=== PATIENT | male | born 1960 | race Hispanic/Latino ===

== ENCOUNTER → 2021-06-27 | Outpatient (CLI) | payer BC ==
[~2021-06-27] MED LIST: IOPAMIDOL 370 MG/ML 200 ML INFUS..BTL INJ ONE; METOPROLOL TARTRATE 25 MG TAB ONE; METOPROLOL TARTRATE INJ 1 MG/ML VIAL ONE; NITROGLYCERIN 0.4 MG SUBL ONE; SODIUM CHLORIDE 0.9% 100 ML ONE; SODIUM CHLORIDE 0.9% 250ML 250 ML ONE
[2021-06-27 08:12] LABS: CREATININE, SERUM 1.25 mg/dL (0.72-1.25)
== END ==
LOC: CT 07:37
PROVIDERS: ATTEND Internal Medicine Cardiovascular Disease
DX: R07.9 Chest pain, unspecified (principal)
CPT/HCPCS: 36415; 75574; 82565; 84520; J7050 ×2; Q9967

== ENCOUNTER 2022-02-10 00:31 | Inpatient (IN) | payer OTHER ==
[2022-02-10] VITALS (8 sets, daily range): BP systolic 105–191; BP diastolic 69–105
[~2022-02-10] VITALS: Ht 175.3 cm; Wt 126.6 kg
[2022-02-10] MEDS ORDERED: KETOROLAC TROME10 MG PO (04:13)
[2022-02-10] MEDS ORDERED: HYDRALAZINE HC100 MG PO (04:13)
[2022-02-10] MEDS ORDERED: CARVEDILOL25 MG PO (04:13)
[2022-02-10] MEDS ORDERED: JANTOVEN7.5 MG PO (04:13)
[2022-02-10] MEDS ORDERED: BUSPIRONE HCL10 MG PO (04:13)
[2022-02-10] MEDS ORDERED: LOSARTAN-HCTZ1 EAC1 PO (04:13)
[2022-02-10] MEDS ORDERED: ATORVASTATIN CA40 MG PO (04:13)
[2022-02-10] MEDS ORDERED: GABAPENTIN300 MG PO (04:13)
[2022-02-10] MEDS ORDERED: METOPROLOL TARTRATE INJ 1 MG/ML VIAL IV PRN (04:30)
[2022-02-10] MEDS ORDERED: ACETAMINOPHEN 325 MG TAB PO PRN (09:45)
[2022-02-10] MEDS ORDERED: ONDANSETRON HCL INJ 2MG/ML 2ML 2 MG/ML VIAL IV PRN (09:45)
[2022-02-10] MEDS ORDERED: DOCUSATE SODIUM 100 MG CAP PO PRN (09:45)
[2022-02-10 11:13] LABS: BASOPHILS % 0.2 % (0.0-1.0); HEMATOCRIT 41.7 % (38.2-49.6); HEMOGLOBIN 13.8 g/dL (14.0-18.0); LYMPHOCYTES # (AUTO) 0.7 (1.0-3.2); LYMPHOCYTES % 5.8 % (18.0-39.1); MEAN CORPUSCULAR HEMOGLOBIN 32.1 pg (28-32); MEAN CORPUSCULAR HGB CONC 33.1 g/dL (31-35); MONOCYTES # (AUTO) 1.2 (0.2-0.8); MONOCYTES % 10.9 % (4.4-11.3); NEUTROPHILS # (AUTO) 9.3 (2.1-6.9); NEUTROPHILS % 82.6 % (38.7-80.0); PLATELET COUNT 270 x10e3/uL (140-360); RED CELL DISTRIBUTION WIDTH 12.2 % (11.7-14.4)
[2022-02-10 11:24] LABS: INR 1.01; PROTHROMBIN TIME 14.2 seconds (11.9-14.5)
[2022-02-10 11:39] LABS: ANION GAP 17.4 mmol/L (8-16); CALCIUM 9.4 mg/dL (8.4-10.2); CREATININE, SERUM 0.82 mg/dL (0.72-1.25); POTASSIUM 3.4 mmol/L (3.5-5.1)
[2022-02-10] MEDS: CARVEDILOL 12.5 MG TAB PO SCH ×2 (11:47→17:32)
[2022-02-10] MEDS: HYDRALAZINE HCL 100 MG TABLET PO SCH ×2 (11:47→23:13)
[2022-02-10] MEDS: BUSPIRONE HCL 5 MG TAB PO SCH ×2 (11:47→17:32)
[2022-02-10 11:51] LABS: CHOL/HDL RATIO 3.3 (3.9-4.7)
[2022-02-10] MEDS: FUROSEMIDE INJ 10 MG/ML 2 ML VIAL IV SCH ×2 (13:11→17:32)
[2022-02-10] MEDS ORDERED: WATER STERILE 10 ML VIAL ONE (13:34)
[2022-02-10] MEDS ORDERED: ETOMIDATE 2 MG/ML 10 ML INJ IV ONE (13:34)
[2022-02-10] MEDS ORDERED: MIDAZOLAM HCL 2 MG/2 ML VIAL ONE (13:34)
[2022-02-10] MEDS ORDERED: VECURONIUM BROMIDE FOR INJ 20 MG VIAL ONE (13:34)
[2022-02-10] MEDS ORDERED: SUCCINYLCHOLINE CHLORIDE 20 MG/ML 10ML VIAL ONE (13:34)
[2022-02-10] MEDS ORDERED: HYDRALAZINE HCL 100 MG TABLET PO SCH (14:00)
[2022-02-10] MEDS: GABAPENTIN 300 MG CAP PO SCH ×2 (14:41→23:13)
[2022-02-10] MEDS: ALBUTEROL/IPRATROPIUM 3 ML NEB NEB PRN ×2 (15:10→19:20)
[2022-02-10] MEDS: WARFARIN SOD 5 MG TAB PO SCH (17:31)
[2022-02-10] MEDS ORDERED: BENZONATATE 100 MG CAP PO PRN (22:45)
[2022-02-10] MEDS ORDERED: ALPRAZOLAM 0.5 MG TAB PO ONE (22:45)
[2022-02-10] MEDS: ATORVASTATIN 40 MG TAB PO SCH (23:14)
[2022-02-11] VITALS (45 sets, daily range): BP systolic 66–164; BP diastolic 37–145
[2022-02-11] MEDS: ALBUTEROL/IPRATROPIUM 3 ML NEB NEB PRN ×2 (01:30→15:05)
[2022-02-11] MEDS: HYDRALAZINE HCL 100 MG TABLET PO SCH ×3 (06:00→22:00)
[2022-02-11] MEDS: GABAPENTIN 300 MG CAP PO SCH ×3 (06:00→22:00)
[2022-02-11] MEDS ORDERED: ZIPRASIDONE 20 MG VIAL IM STA (06:21)
[2022-02-11] MEDS ORDERED: ZIPRASIDONE 20 MG VIAL IM ONE (06:35)
[2022-02-11] MEDS: FUROSEMIDE INJ 10 MG/ML 2 ML VIAL IV SCH (07:18)
[2022-02-11] MEDS: CARVEDILOL 12.5 MG TAB PO SCH ×2 (09:00→17:00)
[2022-02-11] MEDS: BUSPIRONE HCL 5 MG TAB PO SCH ×2 (09:00→17:00)
[2022-02-11 09:53] LABS: INR 1.02; PROTHROMBIN TIME 14.3 seconds (11.9-14.5)
[2022-02-11] MEDS ORDERED: FUROSEMIDE INJ 10 MG/ML 4 ML VIAL IV NR (10:15)
[2022-02-11] MEDS ORDERED: POTASSIUM CHLORIDE 20MEQ/100ML 200 ML IV ONE (10:15)
[2022-02-11] MEDS ORDERED: DEXMEDETOMIDINE 400MCG/NS100ML 100 ML IV PRN (10:30)
[2022-02-11] MEDS ORDERED: PROPOFOL IV EMULSION 10MG/ML 100 ML ONE (10:54)
[2022-02-11] MEDS ORDERED: AMIODARONE HCL 150 MG/100 ML BAG IV ONE (11:00)
[2022-02-11] MEDS ORDERED: AMIODARONE 900MG 500 ML IV ONE (11:12)
[2022-02-11] MEDS ORDERED: AMIODARONE 900MG 900 MG in Premix Bag 1 BAG IV SCH (11:15)
[2022-02-11] MEDS ORDERED: LACTATED RINGER'S 500 ML INJ ONE (11:45)
[2022-02-11] MEDS: PROPOFOL IV EMULSION 10MG/ML 100 ML IV SCH ×5 (11:54→22:39)
[2022-02-11] MEDS ORDERED: LIDOCAINE HCL 2% LOCAL INJ 5 ML SDV VIAL INJ NR (12:00)
[2022-02-11] MEDS ORDERED: POTASSIUM CHLORIDE 20MEQ/100ML 100 ML ONE (12:14)
[2022-02-11] MEDS ORDERED: MIDAZOLAM HCL 2 MG/2 ML VIAL IV NR (12:15)
[2022-02-11] MEDS ORDERED: LIDOCAINE HCL 2% LOCAL INJ 5 ML SDV VIAL INJ ONE (12:32)
[2022-02-11] MEDS ORDERED: NOREPINEPHRINE 8 MG/D5W 250 ML 250 ML ONE (12:44)
[2022-02-11 13:20] LABS: ABG HCO3 36 mmol/L (22-26); ABG PCO2 80 mmHg (35-45); ABG PH 7.27 (7.35-7.45); ABG PO2 121 mmHg (80-105); ABG TCO2 38
[2022-02-11 14:17] LABS: ABG HCO3 34 mmol/L (22-26); ABG PCO2 53 mmHg (35-45); ABG PH 7.42 (7.35-7.45); ABG PO2 147 mmHg (80-105)
[2022-02-11 14:18] LABS: ABG TCO2 36
[2022-02-11] MEDS: WARFARIN SOD 5 MG TAB PO SCH (17:00)
[2022-02-11] MEDS ORDERED: FUROSEMIDE INJ 10 MG/ML 2 ML VIAL IV SCH (18:00)
[2022-02-11] MEDS ORDERED: ACETAMINOPHEN 1000 MG/100 ML IV PRN (20:30)
[2022-02-11] MEDS ORDERED: LACTATED RINGER'S 500 ML IV ONE (20:30)
[2022-02-11] MEDS: LACTATED RINGER'S 1,000 ML INJ SCH (20:52)
[2022-02-11] MEDS: ATORVASTATIN 40 MG TAB PO SCH (20:58)
[2022-02-12] VITALS (34 sets, daily range): BP systolic 105–173; BP diastolic 57–96
[2022-02-12] MEDS: PROPOFOL IV EMULSION 10MG/ML 100 ML IV SCH ×8 (03:23→21:28)
[2022-02-12] MEDS: LACTATED RINGER'S 1,000 ML INJ SCH ×2 (04:30→09:53)
[2022-02-12] MEDS: GABAPENTIN 300 MG CAP PO SCH ×3 (06:00→22:00)
[2022-02-12] MEDS: HYDRALAZINE HCL 100 MG TABLET PO SCH ×2 (06:00→14:00)
[2022-02-12 06:46] LABS: BASOPHILS # (AUTO) 0.1 (0.0-0.1); BASOPHILS % 0.4 % (0.0-1.0); EOSINOPHILS # (AUTO) 0.1 (0.0-0.4); EOSINOPHILS % 0.5 % (0.0-6.0); HEMATOCRIT 36.8 % (38.2-49.6); HEMOGLOBIN 11.6 g/dL (14.0-18.0); LYMPHOCYTES # (AUTO) 0.8 (1.0-3.2); LYMPHOCYTES % 6.8 % (18.0-39.1); MEAN CORPUSCULAR HEMOGLOBIN 31.8 pg (28-32); MEAN CORPUSCULAR HGB CONC 31.5 g/dL (31-35); MEAN CORPUSCULAR VOLUME 100.8 fL (81-99); MONOCYTES # (AUTO) 0.8 (0.2-0.8); NEUTROPHILS # (AUTO) 9.6 (2.1-6.9); NEUTROPHILS % 84.6 % (38.7-80.0); PLATELET COUNT 210 x10e3/uL (140-360); RED BLOOD COUNT 3.65 x10e6/uL (4.3-5.7); RED CELL DISTRIBUTION WIDTH 12.9 % (11.7-14.4)
[2022-02-12 07:10] LABS: INR 1.1; PROTHROMBIN TIME 15.2 seconds (11.9-14.5)
[2022-02-12 07:11] LABS: ALBUMIN 2.4 g/dL (3.5-5.0); ALBUMIN/GLOBULIN RATIO 0.7 (0.8-2.0); ANION GAP 15.7 mmol/L (8-16); CALCIUM 8.3 mg/dL (8.4-10.2); CREATININE, SERUM 1.8 mg/dL (0.72-1.25); POTASSIUM 3.7 mmol/L (3.5-5.1)
[2022-02-12] MEDS ORDERED: SODIUM CHLORIDE 0.9% 1000ML 1,000 ML ONE (08:46)
[2022-02-12] MEDS: BUSPIRONE HCL 5 MG TAB PO SCH ×3 (09:00→18:45)
[2022-02-12] MEDS: CARVEDILOL 12.5 MG TAB PO SCH ×2 (09:00→18:45)
[2022-02-12] MEDS ORDERED: MIDAZOLAM HCL 5 MG/ML VIAL ONE (09:05)
[2022-02-12] MEDS ORDERED: MIDAZOLAM HCL 2 MG/2 ML VIAL IV ONE (09:15)
[2022-02-12 09:35] LABS: ABG HCO3 29 mmol/L (22-26); ABG PCO2 46 mmHg (35-45); ABG PH 7.41 (7.35-7.45); ABG PO2 73 mmHg (80-105); ABG TCO2 30
[2022-02-12] MEDS ORDERED: FUROSEMIDE INJ 10 MG/ML 4 ML VIAL IV ONE (13:30)
[2022-02-12] MEDS: WARFARIN SOD 5 MG TAB PO SCH (18:46)
[2022-02-12] MEDS: ATORVASTATIN 40 MG TAB NG SCH (21:33)
[2022-02-12] MEDS: HYDRALAZINE HCL 100 MG TABLET NG SCH (22:41)
[2022-02-13] VITALS (42 sets, daily range): BP systolic 110–152; BP diastolic 56–69
[2022-02-13] MEDS: LACTATED RINGER'S 1,000 ML INJ SCH (01:08)
[2022-02-13] MEDS: PROPOFOL IV EMULSION 10MG/ML 100 ML IV SCH ×9 (01:21→19:39)
[2022-02-13] MEDS: GABAPENTIN 300 MG CAP PO SCH ×3 (06:00→20:18)
[2022-02-13] MEDS: HYDRALAZINE HCL 100 MG TABLET NG SCH ×3 (06:15→20:28)
[2022-02-13 06:42] LABS: BASOPHILS % 0.3 % (0.0-1.0); EOSINOPHILS # (AUTO) 0.1 (0.0-0.4); HEMATOCRIT 35.5 % (38.2-49.6); HEMOGLOBIN 11.4 g/dL (14.0-18.0); LYMPHOCYTES # (AUTO) 0.6 (1.0-3.2); LYMPHOCYTES % 5.1 % (18.0-39.1); MEAN CORPUSCULAR HEMOGLOBIN 32.2 pg (28-32); MEAN CORPUSCULAR HGB CONC 32.1 g/dL (31-35); MEAN CORPUSCULAR VOLUME 100.3 fL (81-99); MONOCYTES # (AUTO) 0.6 (0.2-0.8); MONOCYTES % 5.5 % (4.4-11.3); NEUTROPHILS % 86.9 % (38.7-80.0); PLATELET COUNT 222 x10e3/uL (140-360); RED BLOOD COUNT 3.54 x10e6/uL (4.3-5.7); RED CELL DISTRIBUTION WIDTH 12.8 % (11.7-14.4)
[2022-02-13 07:00] LABS: ALBUMIN 2.2 g/dL (3.5-5.0); ALBUMIN/GLOBULIN RATIO 0.6 (0.8-2.0); ANION GAP 14.7 mmol/L (8-16); CALCIUM 8.2 mg/dL (8.4-10.2); CREATININE, SERUM 1.29 mg/dL (0.72-1.25); PHOSPHORUS 2.5 MG/DL (2.3-4.7)
[2022-02-13 07:05] LABS: POTASSIUM 2.7 mmol/L (3.5-5.1)
[2022-02-13 08:22] LABS: ABG HCO3 32 mmol/L (22-26); ABG PCO2 50 mmHg (35-45); ABG PH 7.41 (7.35-7.45); ABG PO2 69 mmHg (80-105)
[2022-02-13 08:23] LABS: ABG TCO2 33
[2022-02-13] MEDS: POTASSIUM CHLORIDE 20MEQ/100ML 100 ML IV SCH ×2 (08:35→09:59)
[2022-02-13] MEDS: BUSPIRONE HCL 5 MG TAB NG SCH ×2 (08:49→17:30)
[2022-02-13] MEDS: CARVEDILOL 12.5 MG TAB NG SCH ×2 (08:50→17:00)
[2022-02-13 09:34] LABS: INR 1.22; PROTHROMBIN TIME 16.5 seconds (11.9-14.5)
[2022-02-13] MEDS ORDERED: MIDAZOLAM HCL 2 MG/2 ML VIAL IV STA (09:44)
[2022-02-13] MEDS: POTASSIUM CHLORIDE 20 MEQ TAB CR PO SCH ×3 (09:59→20:29)
[2022-02-13] MEDS: AMIODARONE HCL 200 MG TAB NG SCH (09:59)
[2022-02-13] MEDS ORDERED: FUROSEMIDE INJ 10 MG/ML 4 ML VIAL IV SCH (10:00)
[2022-02-13] MEDS: ALBUMIN 25% 25GM 100ML 100 ML IV SCH (13:30)
[2022-02-13] MEDS: WARFARIN SOD 5 MG TAB NG SCH (17:21)
[2022-02-13] MEDS: ATORVASTATIN 40 MG TAB NG SCH (20:28)
[2022-02-14] VITALS (41 sets, daily range): BP systolic 98–201; BP diastolic 60–96
[2022-02-14] MEDS: PROPOFOL IV EMULSION 10MG/ML 100 ML IV SCH ×5 (00:43→21:14)
[2022-02-14] MEDS: HYDRALAZINE HCL 100 MG TABLET NG SCH ×3 (05:35→21:10)
[2022-02-14] MEDS: GABAPENTIN 300 MG CAP PO SCH ×3 (05:35→21:09)
[2022-02-14 05:37] LABS: BASOPHILS # (AUTO) 0.1 (0.0-0.1); BASOPHILS % 0.5 % (0.0-1.0); EOSINOPHILS # (AUTO) 0.2 (0.0-0.4); EOSINOPHILS % 1.7 % (0.0-6.0); HEMATOCRIT 37.6 % (38.2-49.6); HEMOGLOBIN 11.7 g/dL (14.0-18.0); LYMPHOCYTES # (AUTO) 0.8 (1.0-3.2); LYMPHOCYTES % 7.5 % (18.0-39.1); MEAN CORPUSCULAR HEMOGLOBIN 31.9 pg (28-32); MEAN CORPUSCULAR HGB CONC 31.1 g/dL (31-35); MEAN CORPUSCULAR VOLUME 102.5 fL (81-99); MONOCYTES # (AUTO) 0.8 (0.2-0.8); MONOCYTES % 7.4 % (4.4-11.3); NEUTROPHILS # (AUTO) 8.3 (2.1-6.9); NEUTROPHILS % 81.4 % (38.7-80.0); PLATELET COUNT 252 x10e3/uL (140-360); RED BLOOD COUNT 3.67 x10e6/uL (4.3-5.7); RED CELL DISTRIBUTION WIDTH 13.2 % (11.7-14.4)
[2022-02-14 05:51] LABS: ALBUMIN 2.2 g/dL (3.5-5.0); ALBUMIN/GLOBULIN RATIO 0.5 (0.8-2.0); ANION GAP 13.9 mmol/L (8-16); CALCIUM 8.6 mg/dL (8.4-10.2); CREATININE, SERUM 1.07 mg/dL (0.72-1.25); MAGNESIUM 2.3 MG/DL (1.3-2.1); PHOSPHORUS 2.6 MG/DL (2.3-4.7); POTASSIUM 3.9 mmol/L (3.5-5.1)
[2022-02-14 07:14] LABS: ABG PCO2 50 mmHg (35-45); ABG PH 7.43 (7.35-7.45); ABG PO2 78 mmHg (80-105)
[2022-02-14 07:15] LABS: ABG HCO3 33 mmol/L (22-26); ABG TCO2 35
[2022-02-14] MEDS: FUROSEMIDE INJ 10 MG/ML 4 ML VIAL IV SCH ×2 (08:22→15:09)
[2022-02-14] MEDS: ALBUMIN 25% 25GM 100ML 100 ML IV SCH ×2 (08:22→21:08)
[2022-02-14] MEDS: BUSPIRONE HCL 5 MG TAB NG SCH ×2 (08:25→16:02)
[2022-02-14] MEDS: AMIODARONE HCL 200 MG TAB NG SCH (08:25)
[2022-02-14] MEDS: POTASSIUM CHLORIDE 20 MEQ TAB CR PO SCH ×3 (08:25→21:10)
[2022-02-14] MEDS: CARVEDILOL 12.5 MG TAB NG SCH ×2 (08:29→16:03)
[2022-02-14 09:57] LABS: INR 1.1; PROTHROMBIN TIME 15.2 seconds (11.9-14.5)
[2022-02-14] MEDS ORDERED: ALBUMIN 25% 25GM 100ML 0.25 GM/ML BTL IV SCH (12:00)
[2022-02-14] MEDS: FENTANYL 2000MCG/NS 250 250 ML IV SCH (13:50)
[2022-02-14] MEDS: WARFARIN SOD 5 MG TAB NG SCH (16:04)
[2022-02-14] MEDS: ATORVASTATIN 40 MG TAB NG SCH (21:09)
[2022-02-14] MEDS: DEXMEDETOMIDINE 400MCG/NS100ML 100 ML IV PRN (21:13)
[2022-02-15] VITALS (79 sets, daily range): BP systolic 71–183; BP diastolic 49–116
[2022-02-15] MEDS: FUROSEMIDE INJ 10 MG/ML 4 ML VIAL IV SCH ×2 (00:21→09:47)
[2022-02-15] MEDS ORDERED: SODIUM CHLORIDE 0.9% 250ML 250 ML ONE (00:39)
[2022-02-15] MEDS: ALBUMIN 25% 25GM 100ML 100 ML IV SCH ×4 (02:50→20:59)
[2022-02-15] MEDS: DEXMEDETOMIDINE 400MCG/NS100ML 100 ML IV PRN ×4 (04:52→21:00)
[2022-02-15 05:46] LABS: BASOPHILS % 0.6 % (0.0-1.0); EOSINOPHILS # (AUTO) 0.2 (0.0-0.4); EOSINOPHILS % 3.4 % (0.0-6.0); HEMATOCRIT 35.4 % (38.2-49.6); HEMOGLOBIN 10.7 g/dL (14.0-18.0); LYMPHOCYTES # (AUTO) 0.6 (1.0-3.2); LYMPHOCYTES % 8.9 % (18.0-39.1); MEAN CORPUSCULAR HEMOGLOBIN 31.5 pg (28-32); MEAN CORPUSCULAR HGB CONC 30.2 g/dL (31-35); MEAN CORPUSCULAR VOLUME 104.1 fL (81-99); MONOCYTES # (AUTO) 0.5 (0.2-0.8); NEUTROPHILS # (AUTO) 5.2 (2.1-6.9); NEUTROPHILS % 77.3 % (38.7-80.0); PLATELET COUNT 218 x10e3/uL (140-360); RED CELL DISTRIBUTION WIDTH 13.2 % (11.7-14.4)
[2022-02-15] MEDS: PROPOFOL IV EMULSION 10MG/ML 100 ML IV SCH ×6 (05:48→23:36)
[2022-02-15] MEDS: GABAPENTIN 300 MG CAP PO SCH ×3 (06:06→21:01)
[2022-02-15] MEDS: HYDRALAZINE HCL 100 MG TABLET NG SCH ×3 (06:06→21:00)
[2022-02-15 06:16] LABS: ALBUMIN 2.9 g/dL (3.5-5.0); ALBUMIN/GLOBULIN RATIO 0.7 (0.8-2.0); ANION GAP 15.6 mmol/L (8-16); CALCIUM 8.4 mg/dL (8.4-10.2); CREATININE, SERUM 0.98 mg/dL (0.72-1.25); POTASSIUM 3.6 mmol/L (3.5-5.1)
[2022-02-15 07:57] LABS: ABG HCO3 33 mmol/L (22-26); ABG PCO2 55 mmHg (35-45); ABG PH 7.39 (7.35-7.45); ABG PO2 84 mmHg (80-105)
[2022-02-15 07:58] LABS: ABG TCO2 35
[2022-02-15] MEDS: FENTANYL 2000MCG/NS 250 250 ML IV SCH (08:14)
[2022-02-15] MEDS: BUSPIRONE HCL 5 MG TAB NG SCH ×2 (09:47→18:16)
[2022-02-15] MEDS: AMIODARONE HCL 200 MG TAB NG SCH (09:47)
[2022-02-15] MEDS: CARVEDILOL 12.5 MG TAB NG SCH ×2 (09:48→18:16)
[2022-02-15] MEDS: POTASSIUM CHLORIDE 20 MEQ TAB CR PO SCH ×3 (09:49→21:01)
[2022-02-15 10:53] LABS: INR 1.06; PROTHROMBIN TIME 14.8 seconds (11.9-14.5)
[2022-02-15] MEDS: METHYLPREDNISOLONE SOD SUCC 125 MG/2ML VIAL IV SCH ×2 (11:18→21:02)
[2022-02-15 12:41] LABS: ABG HCO3 34 mmol/L (22-26); ABG PCO2 57 mmHg (35-45); ABG PH 7.38 (7.35-7.45); ABG PO2 74 mmHg (80-105); ABG TCO2 36
[2022-02-15] MEDS ORDERED: POTASSIUM CHLORIDE 20MEQ/100ML 100 ML IV ONE (13:30)
[2022-02-15] MEDS: FUROSEMIDE INJ 100 MG in SODIUM CHLORIDE 0.9% 90 ML IV SCH (14:46)
[2022-02-15] MEDS ORDERED: IOPAMIDOL 370 MG/ML 100 ML INFUS..BTL INJ ONE (15:09)
[2022-02-15] MEDS: ALBUTEROL/IPRATROPIUM 3 ML NEB NEB PRN (15:32)
[2022-02-15] MEDS ORDERED: HEPARIN SOD (PORCINE) 5,000 UNIT/ML VIAL IV ONE (16:30)
[2022-02-15 16:51] LABS: BASOPHILS % 0.4 % (0.0-1.0); EOSINOPHILS # (AUTO) 0.1 (0.0-0.4); EOSINOPHILS % 0.7 % (0.0-6.0); HEMATOCRIT 35.6 % (38.2-49.6); HEMOGLOBIN 10.8 g/dL (14.0-18.0); LYMPHOCYTES # (AUTO) 0.4 (1.0-3.2); LYMPHOCYTES % 4.8 % (18.0-39.1); MEAN CORPUSCULAR HEMOGLOBIN 31.7 pg (28-32); MEAN CORPUSCULAR HGB CONC 30.3 g/dL (31-35); MEAN CORPUSCULAR VOLUME 104.4 fL (81-99); MONOCYTES # (AUTO) 0.2 (0.2-0.8); MONOCYTES % 2.1 % (4.4-11.3); NEUTROPHILS # (AUTO) 7.3 (2.1-6.9); NEUTROPHILS % 90.3 % (38.7-80.0); PLATELET COUNT 213 x10e3/uL (140-360); RED BLOOD COUNT 3.41 x10e6/uL (4.3-5.7)
[2022-02-15] MEDS: WARFARIN SOD 5 MG TAB NG SCH (17:00)
[2022-02-15 17:01] LABS: INR 1.11; PROTHROMBIN TIME 15.3 seconds (11.9-14.5)
[2022-02-15] MEDS: HEPARIN 25,000 UNIT 1,500 UNIT in DEXTROSE 5% 250ML 250 ML IV SCH (18:15)
[2022-02-15] MEDS ORDERED: METHYLPREDNISOLONE SOD SUCC 125 MG/2ML VIAL IV SCH (21:00)
[2022-02-15] MEDS: ATORVASTATIN 40 MG TAB NG SCH (21:00)
[2022-02-15] MEDS: METOPROLOL TARTRATE INJ 1 MG/ML VIAL IV PRN (23:38)
[2022-02-16] VITALS (39 sets, daily range): BP systolic 160–212; BP diastolic 78–130
[2022-02-16] MEDS: ALBUMIN 25% 25GM 100ML 100 ML IV SCH (02:16)
[2022-02-16] MEDS: FENTANYL 2000MCG/NS 250 250 ML IV SCH ×2 (02:17→18:00)
[2022-02-16] MEDS: DEXMEDETOMIDINE 400MCG/NS100ML 100 ML IV PRN ×5 (02:19→17:59)
[2022-02-16] MEDS: PROPOFOL IV EMULSION 10MG/ML 100 ML IV SCH ×8 (02:19→19:30)
[2022-02-16] MEDS: METOPROLOL TARTRATE INJ 1 MG/ML VIAL IV PRN ×3 (03:34→22:31)
[2022-02-16 05:22] LABS: BASOPHILS % 0.3 % (0.0-1.0); HEMATOCRIT 34.4 % (38.2-49.6); HEMOGLOBIN 10.4 g/dL (14.0-18.0); LYMPHOCYTES # (AUTO) 0.5 (1.0-3.2); LYMPHOCYTES % 7.8 % (18.0-39.1); MEAN CORPUSCULAR HEMOGLOBIN 31.3 pg (28-32); MEAN CORPUSCULAR HGB CONC 30.2 g/dL (31-35); MEAN CORPUSCULAR VOLUME 103.6 fL (81-99); MONOCYTES # (AUTO) 0.3 (0.2-0.8); MONOCYTES % 4.3 % (4.4-11.3); NEUTROPHILS % 83.5 % (38.7-80.0); PLATELET COUNT 222 x10e3/uL (140-360); RED BLOOD COUNT 3.32 x10e6/uL (4.3-5.7); RED CELL DISTRIBUTION WIDTH 12.7 % (11.7-14.4)
[2022-02-16 05:58] LABS: ALBUMIN 3.6 g/dL (3.5-5.0); ALBUMIN/GLOBULIN RATIO 0.9 (0.8-2.0); ANION GAP 17.4 mmol/L (8-16); CALCIUM 8.6 mg/dL (8.4-10.2); CREATININE, SERUM 1.07 mg/dL (0.72-1.25); POTASSIUM 4.4 mmol/L (3.5-5.1)
[2022-02-16] MEDS: HYDRALAZINE HCL 100 MG TABLET NG SCH ×4 (06:01→21:19)
[2022-02-16] MEDS: GABAPENTIN 300 MG CAP PO SCH ×3 (06:01→21:00)
[2022-02-16 07:54] LABS: INR 1.06; PROTHROMBIN TIME 14.8 seconds (11.9-14.5)
[2022-02-16 07:59] LABS: ABG PH 7.39 (7.35-7.45)
[2022-02-16 08:00] LABS: ABG HCO3 35 mmol/L (22-26); ABG PCO2 58 mmHg (35-45); ABG PO2 76 mmHg (80-105); ABG TCO2 37
[2022-02-16] MEDS: HEPARIN 25,000 UNIT 1,500 UNIT in DEXTROSE 5% 250ML 250 ML IV SCH ×2 (08:00→21:12)
[2022-02-16] MEDS: METHYLPREDNISOLONE SOD SUCC 125 MG/2ML VIAL IV SCH (08:57)
[2022-02-16] MEDS: AMIODARONE HCL 200 MG TAB NG SCH (08:58)
[2022-02-16] MEDS: BUSPIRONE HCL 5 MG TAB NG SCH ×2 (08:58→17:22)
[2022-02-16] MEDS: CARVEDILOL 12.5 MG TAB NG SCH ×2 (08:58→17:22)
[2022-02-16] MEDS: POTASSIUM CHLORIDE 20 MEQ TAB CR PO SCH ×3 (08:59→21:00)
[2022-02-16] MEDS: ACETAMINOPHEN 325 MG TAB NG PRN (09:03)
[2022-02-16] MEDS: FUROSEMIDE INJ 100 MG in SODIUM CHLORIDE 0.9% 90 ML IV SCH (09:41)
[2022-02-16] MEDS: HYDRALAZINE HCL 20 MG/ML VIAL IV PRN ×2 (11:34→21:19)
[2022-02-16] MEDS ORDERED: VECURONIUM BROMIDE FOR INJ 20 MG VIAL IV STA (12:21)
[2022-02-16] MEDS ORDERED: MIDAZOLAM HCL 2 MG/2 ML VIAL IV STA (12:21)
[2022-02-16 13:40] LABS: ABG HCO3 35 mmol/L (22-26); ABG PCO2 62 mmHg (35-45); ABG PH 7.36 (7.35-7.45); ABG PO2 65 mmHg (80-105); ABG TCO2 37
[2022-02-16] MEDS: ROCURONIUM 1250MG/NS 250 250 ML IV PRN (16:40)
[2022-02-16] MEDS: WARFARIN SOD 5 MG TAB NG SCH (17:23)
[2022-02-16] MEDS: ATORVASTATIN 40 MG TAB NG SCH (21:01)
[2022-02-16] MEDS: NYSTATIN 15 GM POWDER UD BTL TOP SCH (21:02)
[2022-02-16] MEDS: BALSAM PERU/CASTOR OIL 60 GM OINT...G. TP SCH (21:03)
[2022-02-16] MEDS ORDERED: HEPARIN 25,000 UNIT DRIP IV ONE (21:04)
[2022-02-17] VITALS (47 sets, daily range): BP systolic 86–194; BP diastolic 58–114
[2022-02-17] MEDS: HYDRALAZINE HCL 100 MG TABLET NG SCH ×4 (00:18→21:25)
[2022-02-17] MEDS: HYDRALAZINE HCL 20 MG/ML VIAL IV PRN (01:16)
[2022-02-17] MEDS: NICARDIPINE 20MG/200ML PREMIX 200 ML IV SCH ×3 (01:38→04:17)
[2022-02-17] MEDS: PROPOFOL IV EMULSION 10MG/ML 100 ML IV SCH ×7 (02:52→22:59)
[2022-02-17] MEDS: DEXMEDETOMIDINE 400MCG/NS100ML 100 ML IV PRN ×2 (02:54→05:51)
[2022-02-17] MEDS ORDERED: MIDAZOLAM HCL 2 MG/2 ML VIAL IV STA (04:33)
[2022-02-17] MEDS: FENTANYL 2000MCG/NS 250 250 ML IV SCH ×2 (05:53→23:01)
[2022-02-17] MEDS: GABAPENTIN 300 MG CAP PO SCH ×3 (06:00→21:35)
[2022-02-17 06:47] LABS: BASOPHILS % 0.4 % (0.0-1.0); EOSINOPHILS # (AUTO) 0.2 (0.0-0.4); EOSINOPHILS % 2.2 % (0.0-6.0); HEMATOCRIT 37.2 % (38.2-49.6); HEMOGLOBIN 11.3 g/dL (14.0-18.0); LYMPHOCYTES # (AUTO) 0.8 (1.0-3.2); LYMPHOCYTES % 10.3 % (18.0-39.1); MEAN CORPUSCULAR HEMOGLOBIN 31.7 pg (28-32); MEAN CORPUSCULAR HGB CONC 30.4 g/dL (31-35); MEAN CORPUSCULAR VOLUME 104.5 fL (81-99); MONOCYTES # (AUTO) 0.6 (0.2-0.8); MONOCYTES % 7.3 % (4.4-11.3); NEUTROPHILS # (AUTO) 6.1 (2.1-6.9); NEUTROPHILS % 75.7 % (38.7-80.0); PLATELET COUNT 246 x10e3/uL (140-360); RED BLOOD COUNT 3.56 x10e6/uL (4.3-5.7); RED CELL DISTRIBUTION WIDTH 12.4 % (11.7-14.4)
[2022-02-17 07:17] LABS: INR 1.03; PROTHROMBIN TIME 14.4 seconds (11.9-14.5)
[2022-02-17 07:29] LABS: ALBUMIN 3.2 g/dL (3.5-5.0); ALBUMIN/GLOBULIN RATIO 0.8 (0.8-2.0); ANION GAP 13.3 mmol/L (8-16); CALCIUM 8.6 mg/dL (8.4-10.2); MAGNESIUM 1.9 MG/DL (1.3-2.1); PHOSPHORUS 2.1 MG/DL (2.3-4.7); POTASSIUM 3.3 mmol/L (3.5-5.1)
[2022-02-17 07:40] LABS: ABG HCO3 37 mmol/L (22-26); ABG PCO2 57 mmHg (35-45); ABG PH 7.43 (7.35-7.45); ABG PO2 76 mmHg (80-105); ABG TCO2 39
[2022-02-17] MEDS ORDERED: BISACODYL 10 MG SUPP PR ONE (08:15)
[2022-02-17] MEDS ORDERED: ACETAZOLAMIDE SODIUM 500 MG/VIAL IV ONE (08:15)
[2022-02-17] MEDS ORDERED: POTASSIUM CHLORIDE 20MEQ/100ML 200 ML IV ONE (08:15)
[2022-02-17] MEDS ORDERED: CITRATE OF MAGNESIA 300ML BOTTLE PO ONE (08:15)
[2022-02-17] MEDS: AMIODARONE HCL 200 MG TAB NG SCH (08:42)
[2022-02-17] MEDS: CARVEDILOL 12.5 MG TAB NG SCH ×2 (08:42→16:55)
[2022-02-17] MEDS: DOCUSATE SODIUM 100 MG CAP NG PRN (08:42)
[2022-02-17] MEDS: POTASSIUM CHLORIDE 20 MEQ TAB CR PO SCH ×3 (08:45→21:35)
[2022-02-17] MEDS: NYSTATIN 15 GM POWDER UD BTL TOP SCH ×2 (08:48→21:35)
[2022-02-17] MEDS: BALSAM PERU/CASTOR OIL 60 GM OINT...G. TP SCH ×2 (08:49→21:35)
[2022-02-17] MEDS: FUROSEMIDE INJ 100 MG in SODIUM CHLORIDE 0.9% 90 ML IV SCH (08:49)
[2022-02-17] MEDS: MIDAZOLAM HCL 5MG/ML 10ML VIAL 100 ML IV SCH (09:24)
[2022-02-17 09:44] LABS: ABG HCO3 33 mmol/L (22-26); ABG PCO2 61 mmHg (35-45); ABG PH 7.35 (7.35-7.45); ABG PO2 78 mmHg (80-105)
[2022-02-17 09:45] LABS: ABG TCO2 35
[2022-02-17] MEDS: HEPARIN 25,000 UNIT 1,500 UNIT in DEXTROSE 5% 250ML 250 ML IV SCH ×3 (11:06→23:45)
[2022-02-17] MEDS: ROCURONIUM 1250MG/NS 250 250 ML IV PRN (13:44)
[2022-02-17] MEDS: WARFARIN SOD 5 MG TAB NG SCH (16:54)
[2022-02-17] MEDS ORDERED: NOREPINEPHRINE 8 MG/D5W 250 ML 250 ML ONE (19:02)
[2022-02-17] MEDS ORDERED: ATROPINE SULFATE 0.1 MG/ML 10ML SYR ONE (19:19)
[2022-02-17] MEDS ORDERED: VECURONIUM BROMIDE FOR INJ 20 MG VIAL ONE (19:31)
[2022-02-17] MEDS: ATORVASTATIN 40 MG TAB NG SCH (21:34)
[2022-02-17 21:45] LABS: ABG PH 7.27 (7.35-7.45)
[2022-02-17 21:46] LABS: ABG HCO3 34 mmol/L (22-26); ABG PCO2 75 mmHg (35-45); ABG PO2 48 mmHg (80-105); ABG TCO2 36
[2022-02-17 21:48] LABS: ABG HCO3 34 mmol/L (22-26); ABG PCO2 72 mmHg (35-45); ABG PH 7.29 (7.35-7.45); ABG PO2 77 mmHg (80-105); ABG TCO2 37
[2022-02-17] MEDS ORDERED: HEPARIN 25,000 UNIT DRIP IV ONE (22:12)
[2022-02-17] MEDS ORDERED: HEPARIN 25,000 UNIT 25,000 UNIT in DEXTROSE 5% 250ML 250 ML IV SCH (23:45)
[2022-02-18] VITALS (38 sets, daily range): BP systolic 106–156; BP diastolic 61–96
[2022-02-18] MEDS: FUROSEMIDE INJ 100 MG in SODIUM CHLORIDE 0.9% 90 ML IV SCH ×2 (01:45→10:12)
[2022-02-18] MEDS: MIDAZOLAM HCL 5MG/ML 10ML VIAL 100 ML IV SCH ×2 (02:57→18:46)
[2022-02-18] MEDS: GABAPENTIN 300 MG CAP PO SCH ×3 (03:50→21:14)
[2022-02-18] MEDS: HYDRALAZINE HCL 100 MG TABLET NG SCH ×3 (03:50→21:14)
[2022-02-18 04:59] LABS: BASOPHILS # (AUTO) 0.1 (0.0-0.1); BASOPHILS % 0.5 % (0.0-1.0); EOSINOPHILS # (AUTO) 0.4 (0.0-0.4); EOSINOPHILS % 2.7 % (0.0-6.0); HEMATOCRIT 38.4 % (38.2-49.6); HEMOGLOBIN 11.5 g/dL (14.0-18.0); LYMPHOCYTES % 7.2 % (18.0-39.1); MEAN CORPUSCULAR HEMOGLOBIN 31.6 pg (28-32); MEAN CORPUSCULAR HGB CONC 29.9 g/dL (31-35); MEAN CORPUSCULAR VOLUME 105.5 fL (81-99); MONOCYTES % 7.2 % (4.4-11.3); NEUTROPHILS # (AUTO) 10.9 (2.1-6.9); NEUTROPHILS % 77.6 % (38.7-80.0); PLATELET COUNT 313 x10e3/uL (140-360); RED BLOOD COUNT 3.64 x10e6/uL (4.3-5.7)
[2022-02-18 05:26] LABS: CALCIUM 8.3 mg/dL (8.4-10.2); CREATININE, SERUM 1.24 mg/dL (0.72-1.25)
[2022-02-18] MEDS: PROPOFOL IV EMULSION 10MG/ML 100 ML IV SCH ×6 (05:39→17:28)
[2022-02-18] MEDS: ALBUTEROL/IPRATROPIUM 3 ML NEB NEB PRN ×3 (07:40→15:15)
[2022-02-18 07:51] LABS: ABG HCO3 33 mmol/L (22-26); ABG PCO2 51 mmHg (35-45); ABG PH 7.42 (7.35-7.45); ABG PO2 76 mmHg (80-105); ABG TCO2 35
[2022-02-18] MEDS ORDERED: AMIODARONE HCL 200 MG TAB PO SCH (09:00)
[2022-02-18] MEDS: BALSAM PERU/CASTOR OIL 60 GM OINT...G. TP SCH ×2 (09:00→21:15)
[2022-02-18] MEDS: AMIODARONE HCL 200 MG TAB NG SCH (10:10)
[2022-02-18] MEDS: CARVEDILOL 12.5 MG TAB NG SCH ×2 (10:11→17:18)
[2022-02-18] MEDS: NYSTATIN 15 GM POWDER UD BTL TOP SCH ×2 (10:12→21:15)
[2022-02-18] MEDS: HEPARIN 25,000 UNIT 1,500 UNIT in DEXTROSE 5% 250ML 250 ML IV SCH ×2 (11:05→21:18)
[2022-02-18] MEDS: FENTANYL 2000MCG/NS 250 250 ML IV SCH ×2 (11:08→22:08)
[2022-02-18] MEDS: ROCURONIUM 1250MG/NS 250 250 ML IV PRN (11:08)
[2022-02-18 11:20] LABS: INR 1.16; PROTHROMBIN TIME 15.8 seconds (11.9-14.5)
[2022-02-18] MEDS: KCL 20 MEQ PACKET/ ORAL SOLN PO SCH ×2 (15:05→21:15)
[2022-02-18] MEDS: ACETYLCYSTEINE 200 MG/ML 4ML VIAL INH SCH ×2 (18:54→19:05)
[2022-02-18] MEDS: ALBUTEROL/IPRATROPIUM 3 ML NEB NEB SCH ×2 (19:05→22:50)
[2022-02-18] MEDS: ATORVASTATIN 40 MG TAB NG SCH (21:15)
[2022-02-19] VITALS (58 sets, daily range): BP systolic 81–136; BP diastolic 47–80
[2022-02-19] MEDS: PROPOFOL IV EMULSION 10MG/ML 100 ML IV SCH ×4 (00:06→19:05)
[2022-02-19] MEDS: ALBUTEROL/IPRATROPIUM 3 ML NEB NEB SCH ×6 (03:05→23:03)
[2022-02-19] MEDS: HYDRALAZINE HCL 100 MG TABLET NG SCH ×3 (05:23→21:10)
[2022-02-19] MEDS: GABAPENTIN 300 MG CAP PO SCH ×3 (05:23→21:10)
[2022-02-19] MEDS: ACETYLCYSTEINE 200 MG/ML 4ML VIAL INH SCH (06:49)
[2022-02-19 07:39] LABS: ABG HCO3 34 mmol/L (22-26); ABG PCO2 72 mmHg (35-45); ABG PH 7.29 (7.35-7.45); ABG PO2 71 mmHg (80-105); ABG TCO2 36
[2022-02-19 08:22] LABS: BASOPHILS # (AUTO) 0.1 (0.0-0.1); BASOPHILS % 0.4 % (0.0-1.0); EOSINOPHILS # (AUTO) 0.3 (0.0-0.4); EOSINOPHILS % 1.8 % (0.0-6.0); HEMATOCRIT 35.9 % (38.2-49.6); HEMOGLOBIN 10.6 g/dL (14.0-18.0); LYMPHOCYTES # (AUTO) 0.9 (1.0-3.2); LYMPHOCYTES % 5.7 % (18.0-39.1); MEAN CORPUSCULAR HEMOGLOBIN 31.5 pg (28-32); MEAN CORPUSCULAR HGB CONC 29.5 g/dL (31-35); MEAN CORPUSCULAR VOLUME 106.8 fL (81-99); MONOCYTES # (AUTO) 0.9 (0.2-0.8); NEUTROPHILS # (AUTO) 12.3 (2.1-6.9); PLATELET COUNT 232 x10e3/uL (140-360); RED BLOOD COUNT 3.36 x10e6/uL (4.3-5.7); RED CELL DISTRIBUTION WIDTH 13.5 % (11.7-14.4)
[2022-02-19] MEDS ORDERED: ACETAMINOPHEN 1000 MG/100 ML IV ONE (08:24)
[2022-02-19 08:40] LABS: ALBUMIN 2.5 g/dL (3.5-5.0); ALBUMIN/GLOBULIN RATIO 0.6 (0.8-2.0); ANION GAP 14.9 mmol/L (8-16); CALCIUM 8.3 mg/dL (8.4-10.2); CREATININE, SERUM 1.4 mg/dL (0.72-1.25); POTASSIUM 3.9 mmol/L (3.5-5.1)
[2022-02-19 08:50] LABS: INR 1.15; PROTHROMBIN TIME 15.7 seconds (11.9-14.5)
[2022-02-19] MEDS: CARVEDILOL 12.5 MG TAB NG SCH ×2 (09:42→16:21)
[2022-02-19] MEDS: AMIODARONE HCL 200 MG TAB NG SCH (09:42)
[2022-02-19] MEDS: KCL 20 MEQ PACKET/ ORAL SOLN PO SCH ×3 (09:42→21:12)
[2022-02-19] MEDS: BALSAM PERU/CASTOR OIL 60 GM OINT...G. TP SCH ×2 (09:43→21:00)
[2022-02-19] MEDS: NYSTATIN 15 GM POWDER UD BTL TOP SCH ×2 (09:43→21:03)
[2022-02-19] MEDS: FENTANYL 2000MCG/NS 250 250 ML IV SCH ×2 (09:44→18:58)
[2022-02-19] MEDS ORDERED: ACETAZOLAMIDE SODIUM 500 MG/VIAL IV ONE (09:45)
[2022-02-19] MEDS ORDERED: Vancomycin IV 1 GM in SODIUM CHLORIDE 0.9% 250ML 250 ML IV ONE ×2 (09:45→12:30)
[2022-02-19] MEDS: HEPARIN 25,000 UNIT 1,500 UNIT in DEXTROSE 5% 250ML 250 ML IV SCH ×2 (11:26→23:16)
[2022-02-19] MEDS: MIDAZOLAM HCL 5MG/ML 10ML VIAL 100 ML IV SCH ×2 (11:27→21:11)
[2022-02-19] MEDS: ALBUMIN 25% 25GM 100ML 0.25 GM/ML BTL IV SCH ×2 (11:28→13:00)
[2022-02-19] MEDS ORDERED: SODIUM CHLORIDE 0.9% 500ML 500 ML ONE (11:55)
[2022-02-19 13:16] LABS: ABG HCO3 32 mmol/L (22-26); ABG PCO2 64 mmHg (35-45); ABG PH 7.31 (7.35-7.45); ABG PO2 96 mmHg (80-105); ABG TCO2 34
[2022-02-19] MEDS: ATORVASTATIN 40 MG TAB NG SCH (21:10)
[2022-02-19] MEDS: FUROSEMIDE INJ 100 MG in SODIUM CHLORIDE 0.9% 90 ML IV SCH (23:29)
[2022-02-20] VITALS (21 sets, daily range): BP systolic 30–132; BP diastolic 19–98
[2022-02-20] MEDS: PROPOFOL IV EMULSION 10MG/ML 100 ML IV SCH ×2 (01:36→12:06)
[2022-02-20] MEDS: ALBUTEROL/IPRATROPIUM 3 ML NEB NEB SCH ×4 (03:37→15:20)
[2022-02-20] MEDS: HYDRALAZINE HCL 100 MG TABLET NG SCH (05:32)
[2022-02-20] MEDS: GABAPENTIN 300 MG CAP PO SCH (05:32)
[2022-02-20] MEDS: ACETYLCYSTEINE 200 MG/ML 4ML VIAL INH SCH (07:13)
[2022-02-20] MEDS: MIDAZOLAM HCL 5MG/ML 10ML VIAL 100 ML IV SCH (07:16)
[2022-02-20] MEDS: FENTANYL 2000MCG/NS 250 250 ML IV SCH (07:16)
[2022-02-20 07:46] LABS: BASOPHILS # (AUTO) 0.1 (0.0-0.1); BASOPHILS % 0.4 % (0.0-1.0); EOSINOPHILS # (AUTO) 0.3 (0.0-0.4); EOSINOPHILS % 2.1 % (0.0-6.0); HEMATOCRIT 33.7 % (38.2-49.6); HEMOGLOBIN 9.9 g/dL (14.0-18.0); LYMPHOCYTES # (AUTO) 0.6 (1.0-3.2); LYMPHOCYTES % 3.9 % (18.0-39.1); MEAN CORPUSCULAR HEMOGLOBIN 31.5 pg (28-32); MEAN CORPUSCULAR HGB CONC 29.4 g/dL (31-35); MEAN CORPUSCULAR VOLUME 107.3 fL (81-99); MONOCYTES # (AUTO) 0.7 (0.2-0.8); MONOCYTES % 5.1 % (4.4-11.3); NEUTROPHILS # (AUTO) 12.2 (2.1-6.9); NEUTROPHILS % 83.6 % (38.7-80.0); PLATELET COUNT 219 x10e3/uL (140-360); RED BLOOD COUNT 3.14 x10e6/uL (4.3-5.7); RED CELL DISTRIBUTION WIDTH 13.6 % (11.7-14.4)
[2022-02-20 07:47] LABS: ABG PH 7.27 (7.35-7.45)
[2022-02-20 07:48] LABS: ABG HCO3 32 mmol/L (22-26); ABG PCO2 70 mmHg (35-45); ABG PO2 69 mmHg (80-105); ABG TCO2 34
[2022-02-20] MEDS: ACETAMINOPHEN 325 MG TAB NG PRN (07:54)
[2022-02-20 07:59] LABS: INR 1.22; PROTHROMBIN TIME 16.5 seconds (11.9-14.5)
[2022-02-20 08:19] LABS: ALBUMIN 2.6 g/dL (3.5-5.0); ALBUMIN/GLOBULIN RATIO 0.6 (0.8-2.0); ANION GAP 16.1 mmol/L (8-16); CREATININE, SERUM 1.54 mg/dL (0.72-1.25); POTASSIUM 4.1 mmol/L (3.5-5.1)
[2022-02-20] MEDS ORDERED: FENTANYL 2000MCG/NS 250 250 ML IV SCH (08:30)
[2022-02-20 08:53] LABS: HYPOCHROMASIA SLIGHT; PLATELET ESTIMATE ADEQUATE; PLATELET MORPHOLOGY COMMENT NORMAL; RBC MORPHOLOGY COMMENT ABNORMAL
[2022-02-20] MEDS ORDERED: CHLOROTHIAZIDE SODIUM 500 MG VIAL IV SCH (09:00)
[2022-02-20] MEDS ORDERED: CARVEDILOL 12.5 MG TAB NG SCH (09:00)
[2022-02-20] MEDS: KCL 20 MEQ PACKET/ ORAL SOLN PO SCH (09:27)
[2022-02-20] MEDS: NYSTATIN 15 GM POWDER UD BTL TOP SCH (09:27)
[2022-02-20] MEDS: BALSAM PERU/CASTOR OIL 60 GM OINT...G. TP SCH (09:27)
[2022-02-20] MEDS: DOCUSATE SODIUM 100 MG CAP NG PRN (09:28)
[2022-02-20] MEDS: AMIODARONE HCL 200 MG TAB NG SCH (09:49)
[2022-02-20] MEDS ORDERED: DOCUSATE SODIUM LIQD 100 MG/10 ML UDC NG PRN (11:30)
[2022-02-20] MEDS: FUROSEMIDE INJ 100 MG in SODIUM CHLORIDE 0.9% 90 ML IV SCH ×2 (12:04→15:53)
[2022-02-20] MEDS ORDERED: EPINEPHRINE HCL SYRINGE ONE ×3 (14:35→17:50)
[2022-02-20] MEDS ORDERED: ATROPINE SULFATE 0.1 MG/ML 10ML SYR ONE ×3 (14:35→17:50)
[2022-02-20] MEDS ORDERED: SODIUM BICARBONATE 8.4% INJ 50 ML SYR ONE ×2 (14:35→17:50)
[2022-02-20 15:24] LABS: CLARITY,URINE CLEAR (CLEAR); COLOR,URINE YELLOW (YELLOW); KETONES,URINE NEGATIVE (NEGATIVE); LEUKOCYTE ESTERASE ,URINE NEGATIVE (NEGATIVE); NITRITE,URINE NEGATIVE (NEGATIVE); PROTEIN,URINE DIPSTICK NEGATIVE (NEGATIVE); URINE UROBILINOGEN 0.2 mg/dL (0.2 - 1)
[2022-02-20 15:40] LABS: BACTERIA,URINE MODERATE /HPF; WBC,URINE (MAN) 0-5 /HPF (0-5)
[2022-02-20 15:58] LABS: CREATININE,URINE RANDOM 61.18 mg/dL (63-166)
[2022-02-20] MEDS ORDERED: SODIUM CHLORIDE 0.9% 1000ML 1,000 ML ONE (17:13)
[2022-02-20] MEDS ORDERED: NOREPINEPHRINE 8 MG/D5W 250 ML 250 ML ONE (17:13)
[2022-02-20] MEDS ORDERED: PHENYLEPHRINE 10MG/ML VIAL 40 MG in DEXTROSE 5% 250ML 246 ML IV SCH (17:30)
[2022-02-20] MEDS ORDERED: VASOPRESSIN 60 UNIT in DEXTROSE 5% 50ML 57 ML IV SCH (17:30)
[2022-02-20] MEDS ORDERED: DEXTROSE 5% 250 ML BAG IV ONE (17:40)
[2022-02-20] MEDS ORDERED: EPINEPHRINE HCL 1:1000 1ML 1 MG/ML AMP ONE (17:40)
[2022-02-20] MEDS ORDERED: SODIUM CHLORIDE FLUSH 10 ML SYR ONE (17:50)
[2022-02-20] MEDS ORDERED: VECURONIUM BROMIDE FOR INJ 20 MG VIAL ONE (18:08)
[2022-02-20 18:17] LABS: ABG HCO3 21 mmol/L (22-26); ABG PCO2 56 mmHg (35-45); ABG PH 7.18 (7.35-7.45); ABG PO2 61 mmHg (80-105); ABG TCO2 22
[2022-02-20] MEDS ORDERED: VECURONIUM BROMIDE FOR INJ 20 MG VIAL IV ONE (21:17)
[2022-02-20] MEDS ORDERED: WATER STERILE 10 ML VIAL IV ONE (21:17)
== END 2022-02-20 21:18 | disposition expired | DRG 853 ==
LOC: MED/SURG3 03:13 → ICU 02-11 03:09
PROVIDERS: ADMIT Internal Medicine; ATTEND Internal Medicine
PROC: 0BH17EZ Insertion of Endotracheal Airway into Trachea, Via Natural or Artificial Opening (ICD-10-PCS; principal; 2022-02-11)
PROC: 5A1955Z Respiratory Ventilation, Greater than 96 Consecutive Hours (ICD-10-PCS; 2022-02-11)
PROC: 02HV33Z Insertion of Infusion Device into Superior Vena Cava, Percutaneous Approach (ICD-10-PCS; 2022-02-11)
PROC: 5A09357 Assistance with Respiratory Ventilation, Less than 24 Consecutive Hours, Continuous Positive Airway Pressure (ICD-10-PCS; 2022-02-11)
PROC: 0B9J8ZX Drainage of Left Lower Lung Lobe, Via Natural or Artificial Opening Endoscopic, Diagnostic (ICD-10-PCS; 2022-02-11)
PROC: 0B9C8ZX Drainage of Right Upper Lung Lobe, Via Natural or Artificial Opening Endoscopic, Diagnostic (ICD-10-PCS; 2022-02-11)
PROC: 0B9D8ZX Drainage of Right Middle Lung Lobe, Via Natural or Artificial Opening Endoscopic, Diagnostic (ICD-10-PCS; 2022-02-11)
PROC: 0B9F8ZX Drainage of Right Lower Lung Lobe, Via Natural or Artificial Opening Endoscopic, Diagnostic (ICD-10-PCS; 2022-02-11)
PROC: 03HC3DZ Insertion of Intraluminal Device into Left Radial Artery, Percutaneous Approach (ICD-10-PCS; 2022-02-12)
PROC: 0B9H8ZX Drainage of Lung Lingula, Via Natural or Artificial Opening Endoscopic, Diagnostic (ICD-10-PCS; 2022-02-12)
PROC: 0B9D8ZX Drainage of Right Middle Lung Lobe, Via Natural or Artificial Opening Endoscopic, Diagnostic (ICD-10-PCS; 2022-02-12)
PROC: 0BD78ZX Extraction of Left Main Bronchus, Via Natural or Artificial Opening Endoscopic, Diagnostic (ICD-10-PCS; 2022-02-12)
PROC: 3E04329 Introduction of Other Anti-infective into Central Vein, Percutaneous Approach (ICD-10-PCS; 2022-02-12)
PROC: 5A12012 Performance of Cardiac Output, Single, Manual (ICD-10-PCS; 2022-02-17)
PROC: 0B9L8ZZ Drainage of Left Lung, Via Natural or Artificial Opening Endoscopic (ICD-10-PCS; 2022-02-17)
PROC: 0BJ08ZZ Inspection of Tracheobronchial Tree, Via Natural or Artificial Opening Endoscopic (ICD-10-PCS; 2022-02-17)
PROC: 0BJ08ZZ Inspection of Tracheobronchial Tree, Via Natural or Artificial Opening Endoscopic (ICD-10-PCS; 2022-02-18)
PROC: 0B9G8ZX Drainage of Left Upper Lung Lobe, Via Natural or Artificial Opening Endoscopic, Diagnostic (ICD-10-PCS; 2022-02-18)
PROC: 5A12012 Performance of Cardiac Output, Single, Manual (ICD-10-PCS; 2022-02-20)
PROC: 5A12012 Performance of Cardiac Output, Single, Manual (ICD-10-PCS; 2022-02-20)
PROC: 5A12012 Performance of Cardiac Output, Single, Manual (ICD-10-PCS; 2022-02-20)
PROC: 5A12012 Performance of Cardiac Output, Single, Manual (ICD-10-PCS; 2022-02-20)
PROC: 3E043XZ Introduction of Vasopressor into Central Vein, Percutaneous Approach (ICD-10-PCS; 2022-02-20)
PROC: 02HV33Z Insertion of Infusion Device into Superior Vena Cava, Percutaneous Approach (ICD-10-PCS; 2022-02-20)
PROC: 02HV33Z Insertion of Infusion Device into Superior Vena Cava, Percutaneous Approach (ICD-10-PCS; 2022-02-20)
DX: A41.3 Sepsis due to Hemophilus influenzae (principal); I21.19 ST elevation (STEMI) myocardial infarction involving other coronary artery of inferior wall; I26.93 Single subsegmental thrombotic pulmonary embolism without acute cor pulmonale; I50.33 Acute on chronic diastolic (congestive) heart failure; N17.0 Acute kidney failure with tubular necrosis; J80 Acute respiratory distress syndrome; J69.0 Pneumonitis due to inhalation of food and vomit; J98.19 Other pulmonary collapse; T17.890A Other foreign object in other parts of respiratory tract causing asphyxiation, initial encounter; J44.0 Chronic obstructive pulmonary disease with (acute) lower respiratory infection; J44.1 Chronic obstructive pulmonary disease with (acute) exacerbation; I49.5 Sick sinus syndrome; I11.0 Hypertensive heart disease with heart failure; R65.20 Severe sepsis without septic shock; I46.9 Cardiac arrest, cause unspecified; E66.01 Morbid (severe) obesity due to excess calories; Z68.39 Body mass index [BMI] 39.0-39.9, adult; I48.0 Paroxysmal atrial fibrillation; E78.5 Hyperlipidemia, unspecified; E87.70 Fluid overload, unspecified; E87.6 Hypokalemia; R60.0 Localized edema; Z72.0 Tobacco use; Z20.822 Contact with and (suspected) exposure to COVID-19
CPT/HCPCS: 31500; 36415; 36569; 36600; 71045; 71260; 74018; 76604; 76770; 80048; 80053; 80061; 81001; 82570; 82805; 83036; 83735; 83880; 84100; 84300; 84484; 85025; 85610; 85730; 87040; 87205; 87335; 87400; 87491; 92950; 93005; 93306; 94002; 94003; 94640; 94668; 94669; 94799; 99251; J0171; J0330; J0360; J0456; J0696; J1644; J1940; J2001; J2250; J2370; J2543; J2930; J3370; J3480; J3486; J7030; J7040; J7050; J7121; P9047; Q9967